=== PATIENT | female | born 1965 | race Caucasian/White ===

== ENCOUNTER 2017-04-14 21:04 | Emergency (ER) | payer SELFPAY ==
[~2017-04-14] VITALS: Ht 162.6 cm; Wt 61.2 kg
[2017-04-14] MEDS ORDERED: KETOROLAC TROMETHAMINE INJ 30 MG/ML VIAL ONE (22:26)
[2017-04-14] MEDS ORDERED: ONDANSETRON HCL/PF 4 MG/2 ML VIAL ONE (22:26)
[2017-04-14] MEDS ORDERED: IV NS 0.9% 1,000 ML BAG IV ONE (22:30)
[2017-04-14] MEDS ORDERED: KETOROLAC TROMETHAMINE INJ 30 MG/ML VIAL IV ONE (22:30)
[2017-04-14] MEDS ORDERED: ONDANSETRON HCL/PF 4 MG/2 ML VIAL IVP ONE (22:30)
--- NOTE | 2017-04-14 22:35 | NUR ---
IV ACCESS STARTED, BLOOD DRAWN FOR LABS. PT MEDICATED ORDERED.
[2017-04-14 22:37] LABS: BASOPHILS # (AUTO) 0.1 /CMM (0.0-0.2); BASOPHILS % (AUTO) 0.7 % (0.0-2.0); EOSINOPHILS # (AUTO) 0.2 /CMM (0.0-0.7); EOSINOPHILS % (AUTO) 2.2 % (0.0-6.0); HEMATOCRIT 42 % (33-45); HEMOGLOBIN 13.8 g/dL (11.5-14.8); LYMPHOCYTES # (AUTO) 2.6 /CMM (0.8-4.8); LYMPHOCYTES % (AUTO) 33.9 % (20.0-44.0); MEAN CORPUSCULAR HEMOGLOBIN 30 PG (26.0-33.0); MEAN CORPUSCULAR HGB CONC 33 g/dl (31.0-36.0); MEAN CORPUSCULAR VOLUME 89 fL (82-100); MONOCYTES # (AUTO) 0.5 /CMM (0.1-1.30); MONOCYTES % (AUTO) 5.8 % (2.0-12.0); NEUTROPHILS # (AUTO) 4.5 /CMM (1.8-8.9); NEUTROPHILS % (AUTO) 57.4 % (43.0-81.0); PLATELET COUNT (AUTO) 225 /CMM (150-450); RED BLOOD CELL COUNT(AUTO) 4.69 MIL/uL (4.0-5.2); WHITE BLOOD COUNT (AUTO) 7.8 K/uL (4.3-11.0)
--- NOTE | 2017-04-14 22:45 | NUR ---
PT UNABLE TO PROVIDE A URINE SAMPLE AT THIS TIME.
[2017-04-14 22:48] LABS: CALCIUM, SERUM 8.4 mg/dL (8.5-10.1); CREATININE 0.8 mg/dL (0.6-1.3); POTASSIUM 4.4 mmol/L (3.5-5.1)
[2017-04-14 22:54] LABS: ALBUMIN 3.5 g/dL (3.4-5.0); BILIRUBIN,TOTAL 0.2 mg/dL (0.2-1.0); TOTAL PROTEIN, SERUM 7.2 g/dL (6.4-8.2)
--- NOTE | 2017-04-14 23:35 | NUR ---
IV removed. Catheter intact and site benign. Pressure and 4x4 applied to site. No bleeding noted.
--- NOTE | 2017-04-14 23:45 | NUR ---
Patient discharged to home in stable condition. Written and verbal after care instructions given. Patient verbalizes understanding of instruction.
[2017-04-14 23:50] VITALS: BP 131/88
== END 2017-04-14 23:51 | disposition home or self-care (01) ==
LOC: ER 21:04
DX: K29.00 Acute gastritis without bleeding (principal); I10 Essential (primary) hypertension; Z87.19 Personal history of other diseases of the digestive system; Z88.2 Allergy status to sulfonamides; Z88.6 Allergy status to analgesic agent; Z88.8 Allergy status to other drugs, medicaments and biological substances
CPT/HCPCS: 36415; 80048-TC; 80076-TC; 83690-TC; 85025-TC; A4606; J1885; J2405; J7030; Z7610

== ENCOUNTER 2017-05-29 01:24 | Emergency (ER) | payer SELFPAY ==
[~2017-05-29] VITALS: Ht 160 cm; Wt 61.2 kg
[2017-05-29 01:59] VITALS: BP 149/91
--- NOTE | 2017-05-29 02:07 | NUR ---
Dr Maldonado at bedside to eval.
== END 2017-05-29 02:44 | disposition home or self-care (01) ==
LOC: ER 01:29
DX: A49.02 Methicillin resistant Staphylococcus aureus infection, unspecified site (principal); I10 Essential (primary) hypertension; Z90.49 Acquired absence of other specified parts of digestive tract; Z88.2 Allergy status to sulfonamides; Z88.1 Allergy status to other antibiotic agents
CPT/HCPCS: 99283; A4606; Z7610

== ENCOUNTER 2017-06-29 19:16 | Inpatient (IN) | payer SELFPAY ==
[~2017-06-29] VITALS: Ht 162.6 cm; Wt 57.2 kg
--- NOTE | 2017-06-29 19:18 | NUR ---
PT TO ER BED 14. PRESENTS W/ SCALP IRRITATION, SWELLING W/ NOTED PUS FOR MONTHS NOW. STATES HURTING REALLY BAD. TOOK AND FINISHED ANTIBIOTICS BUT STATES NOT HELPING. STABLE VITALS. AWAITING MD NATARAJAN.
--- NOTE | 2017-06-29 19:57 | NUR ---
SINDHU ANGULO AT BEDSIDE FOR EVAL.
--- NOTE | 2017-06-29 20:15 | NUR ---
IV LINE STARTED BLOOD DRAWN AND SENT TO LAB.
[2017-06-29 20:22] LABS: BASOPHILS # (AUTO) 0.2 /CMM (0.0-0.2); BASOPHILS % (AUTO) 1.8 % (0.0-2.0); EOSINOPHILS # (AUTO) 0.1 /CMM (0.0-0.7); HEMATOCRIT 46 % (33-45); HEMOGLOBIN 15.1 g/dL (11.5-14.8); LYMPHOCYTES # (AUTO) 1.7 /CMM (0.8-4.8); MEAN CORPUSCULAR HEMOGLOBIN 29 PG (26.0-33.0); MEAN CORPUSCULAR HGB CONC 33 g/dl (31.0-36.0); MEAN CORPUSCULAR VOLUME 88 fL (82-100); MONOCYTES # (AUTO) 0.7 /CMM (0.1-1.30); MONOCYTES % (AUTO) 7.1 % (2.0-12.0); NEUTROPHILS # (AUTO) 6.8 /CMM (1.8-8.9); NEUTROPHILS % (AUTO) 72.1 % (43.0-81.0); PLATELET COUNT (AUTO) 235 /CMM (150-450); RDW COEFFICIENT OF VARIATION 12.4 (11.5-15.0); RED BLOOD CELL COUNT(AUTO) 5.22 MIL/uL (4.0-5.2); WHITE BLOOD COUNT (AUTO) 9.5 K/uL (4.3-11.0)
[2017-06-29] MEDS ORDERED: PIPERACILLIN /TAZOBACTAM 3.375 G in IV D5W 50 ML IV ONE (20:30)
[2017-06-29] MEDS ORDERED: FENTANYL PF 100MCG/2ML AMPUL IV ONE (20:30)
[2017-06-29] MEDS ORDERED: VANCOMYCIN 1 GM in IV D5W 250 ML IV ONE (20:30)
[2017-06-29] MEDS ORDERED: ONDANSETRON HCL/PF 4 MG/2 ML VIAL IVP ONE (20:30)
[2017-06-29] MEDS ORDERED: IV NS 0.9% 1,000 ML BAG IV ONE (20:30)
[2017-06-29 20:38] LABS: ALBUMIN 3.6 g/dL (3.4-5.0); BILIRUBIN,DIRECT 0.1 mg/dL (0.0-0.2); BILIRUBIN,TOTAL 0.5 mg/dL (0.2-1.0); CALCIUM, SERUM 8.9 mg/dL (8.5-10.1); CREATININE 0.7 mg/dL (0.6-1.3); POTASSIUM 3.4 mmol/L (3.5-5.1); TOTAL PROTEIN, SERUM 7.7 g/dL (6.4-8.2)
[2017-06-29] MEDS ORDERED: FENTANYL PF 100MCG/2ML AMPUL ONE (20:47)
[2017-06-29] MEDS ORDERED: PIPERACILLIN /TAZOBACTAM 3.375 G VIAL IV ONE (20:51)
[2017-06-29] MEDS ORDERED: VANCOMYCIN 1 GM VIAL ONE (20:51)
[2017-06-29] MEDS ORDERED: ONDANSETRON HCL/PF 4 MG/2 ML VIAL ONE (20:51)
[2017-06-29] MEDS ORDERED: POTASSIUM CHLORIDE 20 MEQ TAB.PRT.SR PO ONE ×2 (21:00→21:26)
--- NOTE | 2017-06-29 21:54 | NUR ---
LAMISIL UNAVAILABLE IN OMNICEL. NURSE SUPP CALLED STATES THERE IS NONE IN NIGHT LOCKER. SINDHU ANGULO AWARE.
[2017-06-29] MEDS ORDERED: FLUCONAZOLE IN NS,PREMIX 100 MG in PREMIX 1 EA IV SCH ×2 (22:00)
[2017-06-29] MEDS ORDERED: FLUCONAZOLE IN NS 100 ML IV ONE (22:19)
[2017-06-29] MEDS ORDERED: IV 1/2NS 1000 ML 1,000 ML IV PRN (22:23)
[2017-06-29] MEDS ORDERED: Z GUARD REMEDY 2 OZ OINT TP PRN (22:30)
[2017-06-29] MEDS ORDERED: ZOLPIDEM TARTRATE 5 MG TABLET PO PRN (22:30)
[2017-06-29] MEDS ORDERED: ACETAMINOPHEN 325 MG TABLET PO PRN (22:30)
[2017-06-29] MEDS ORDERED: HYDROMORPHONE 1 MG/1 ML DISP.SYRIN IV PRN (22:30)
[2017-06-29] MEDS ORDERED: MAG HYDROX/AL HYDROX/SIMETH 30 ML UDC PO PRN (22:30)
[2017-06-29] MEDS ORDERED: MAGNESIUM HYDROXIDE 30 ML UDC PO PRN (22:30)
[2017-06-29] MEDS ORDERED: ONDANSETRON HCL/PF 4 MG/2 ML VIAL IVP PRN (22:30)
[2017-06-29] MEDS: FENTANYL PF 100MCG/2ML AMPUL IV PRN (22:32)
[2017-06-29 22:44] LABS: INR 0.94 (0.87-1.13); PROTHROMBIN TIME 9.8 SECS (9.5-12.7)
[2017-06-29] MEDS ORDERED: IOHEXOL-300 100 ML VIAL IV ONE (22:49)
[2017-06-29] MEDS ORDERED: IV NS 0.9% 250 ML IV ONE (22:49)
--- NOTE | 2017-06-29 22:52 | NUR ---
REPORT GIVEN TO SURESH. PT AWAITING TRANSFER TO FLOOR.
--- NOTE | 2017-06-29 22:54 | NUR ---
PT TO RADIOLOGY FOR HEAD CT SCAN VIA [facility].
[2017-06-29 23:20] VITALS: BP 122/58
--- NOTE | 2017-06-29 23:20 | NUR ---
RN NOTES RECEIVED PATIENT FROM ER FOR DX SCALP CELLULITIS WITH POSSIBLE ABSCESS. AO X 3, ABLE TO MAKE NEEDS KNOW. NO ACUTE DISTRESS NOTED. PER PATIENT 10/10 HEAD AND SCALP PAIN. SKIN ASSESSMENT DONE. IV SITE PATENT, INTACT; FLUSHED. ON LOW BED WITH BILATERAL UPPER SIDE RAILS UP. CALL LIGHT WITHIN EASY REACH. WILL CONTINUE TO MONITOR.
[2017-06-29 23:38] VITALS: BP 122/58
[2017-06-29] MEDS ORDERED: HYDROCODONE/APAP 5/325MG 1 EACH TABLET ONE (23:57)
[2017-06-29] MEDS: HYDROCODONE/APAP 5/325MG 1 EACH TABLET PO PRN (23:58)
[2017-06-30] MEDS ORDERED: PIPERACILLIN /TAZOBACTAM 2.25 G VIAL IV ONE (04:46)
[2017-06-30] MEDS ORDERED: PIPERACILLIN /TAZOBACTAM 4.5 G in IV D5W 50 ML IV SCH (05:00)
[2017-06-30] MEDS ORDERED: HYDROCODONE/APAP 5/325MG 1 EACH TABLET ONE (05:03)
[2017-06-30] MEDS: HYDROCODONE/APAP 5/325MG 1 EACH TABLET PO PRN ×5 (05:04→22:23)
--- NOTE | 2017-06-30 06:33 | NUR ---
RN NOTES PATIENT ASLEEP, EASILY AROUSABLE. RESPIRATIONS EVEN. NO SIGNS OF PAIN NOTED. DUE MEDS GIVEN WITH NO ASE NOTED. NEEDS ATTENDED. KEPT CLEAN AND DRY. SAFETY PRECAUTIONS AND COMFORT MEASURES IN PLACE WILL GIVE REPORT TO DAY SHIFT FOR CONTINUITY FOR CARE.
--- NOTE | 2017-06-30 07:30 | NUR ---
MS/RN Patient received Patient received from night club manager, sleeping. Appears in no distress, bed in low setting, brakes locked, call light within reach. Will continue to monitor and ensure safety.
[2017-06-30 07:31] LABS: BASOPHILS % (AUTO) 0.4 % (0.0-2.0); EOSINOPHILS # (AUTO) 0.1 /CMM (0.0-0.7); EOSINOPHILS % (AUTO) 1.2 % (0.0-6.0); HEMATOCRIT 40 % (33-45); HEMOGLOBIN 13.3 g/dL (11.5-14.8); LYMPHOCYTES % (AUTO) 12.8 % (20.0-44.0); MEAN CORPUSCULAR HEMOGLOBIN 30 PG (26.0-33.0); MEAN CORPUSCULAR HGB CONC 33 g/dl (31.0-36.0); MEAN CORPUSCULAR VOLUME 89 fL (82-100); MONOCYTES # (AUTO) 0.6 /CMM (0.1-1.30); NEUTROPHILS # (AUTO) 6.2 /CMM (1.8-8.9); NEUTROPHILS % (AUTO) 78.6 % (43.0-81.0); PLATELET COUNT (AUTO) 204 /CMM (150-450); RDW COEFFICIENT OF VARIATION 13.2 (11.5-15.0); RED BLOOD CELL COUNT(AUTO) 4.44 MIL/uL (4.0-5.2); WHITE BLOOD COUNT (AUTO) 7.9 K/uL (4.3-11.0)
[2017-06-30 07:49] LABS: ALBUMIN 2.9 g/dL (3.4-5.0); BILIRUBIN,TOTAL 0.9 mg/dL (0.2-1.0); CALCIUM, SERUM 8.3 mg/dL (8.5-10.1); CREATININE 0.7 mg/dL (0.6-1.3); MAGNESIUM 1.7 mg/dL (1.8-2.4); PHOSPHORUS 4.4 mg/dL (2.5-4.9); TOTAL PROTEIN, SERUM 6.3 g/dL (6.4-8.2)
[2017-06-30 08:00] VITALS: BP_SYST 103; BP_SYST 115; BP_DIAS 55; BP_DIAS 62
[2017-06-30] MEDS ORDERED: FEE PK DOSING 1 MIN EA MC ONE (08:07)
[2017-06-30] MEDS ORDERED: TERBINAFINE HCL 250 MG TABLET PO SCH (09:00)
[2017-06-30] MEDS: VANCOMYCIN 0.75 GM in IV D5W 250 ML IV SCH ×2 (09:29→16:07)
--- NOTE | 2017-06-30 09:30 | NUR ---
MS/RN Medications Jamul one tablet administered for scalp pain. Will monitor effectiveness.
--- NOTE | 2017-06-30 09:40 | NUR ---
MS/RN Vanco Vancomycin infusing at this time, no signs of infiltration.
--- NOTE | 2017-06-30 10:30 | NUR ---
MS/RN Labs reviewed Morning labs reviewed: -WBC 7.9 -Mag 1.7
[2017-06-30] MEDS: PIPERACILLIN /TAZOBACTAM 3.375 G in IV D5W 50 ML IV SCH ×2 (11:12→17:29)
[2017-06-30] MEDS: Magnesium 1GM/D5W 100ML PREMIX 100 ML IV SCH ×2 (11:45→12:42)
--- NOTE | 2017-06-30 12:27 | NUR ---
MS/RN S/B Dr Virk Seen by Dr Virk - continue with current plan of care and awaiting further recommendations from Dr Collins. No increase in pain medications.
--- NOTE | 2017-06-30 13:30 | NUR ---
MS/RN Pacolet One norco tablet administered as ordered for scalp pain. Will monitor effectiveness.
[2017-06-30 16:00] VITALS: BP_SYST 124; BP_DIAS 80; BP_DIAS 90
[2017-06-30] MEDS: FENTANYL PF 100MCG/2ML AMPUL IV PRN (16:07)
--- NOTE | 2017-06-30 16:51 | NUR ---
MS/RN Pain Patient continues to complain of head pain 04/06. Fentanyl 50mcg administered IV as ordered. Will monitor effectiveness.
--- NOTE | 2017-06-30 18:43 | NUR ---
MS/RN End note Patient continues to complain of pain despite receiving norco and fentanyl. Dr Virk aware and does not want to increase medications. All other needs attended, will endorse to carrier associate.
--- NOTE | 2017-06-30 19:35 | NUR ---
rn note; RECEIVED THE PT DOZING INTERMITTENTLY IN BED. BREATHING EVENLY. NO SOB. NAD. OCCASIONALLY SCREAMING FOR PIAN MEDICATION HOWEVER FALLS SLEEP SHORTLY AFTER. SCALP W/ REDNESS. NEEDS ATTENDED. ASSISTED W/ ADLS. CALL LIGHT WITHIN REACH. WILL CONT TO MONITOR.
[2017-06-30 20:00] VITALS: BP 125/68
--- NOTE | 2017-06-30 22:25 | NUR ---
NORCO 5-325 GIVEN ORDERED FOR C/O HEADACHE. ALSO AMBIEN GIVEN PER PT'S REQUEST FOR C/O INSOMNIA. RISK VS. BENEFITS OF TAKING THOSE TWO MEDS WERE EXPLAINED TO THE PT. PT STATED NORCO WILL NOT MADE HER DROWSY AND STILL WILLING TO THE AMBIEN ALONG W/ THE NORCO. WILL CONT TO MONITOR ,
[2017-07-01] MEDS: VANCOMYCIN 0.75 GM in IV D5W 250 ML IV SCH ×2 (00:41→09:11)
[2017-07-01] MEDS: PIPERACILLIN /TAZOBACTAM 3.375 G in IV D5W 50 ML IV SCH ×2 (02:39→10:00)
[2017-07-01] MEDS: FENTANYL PF 100MCG/2ML AMPUL IV PRN ×3 (03:23→10:09)
--- NOTE | 2017-07-01 03:23 | NUR ---
FENTANYL IV WAS GIVEN FOR C/O SEVERE HEADACHE. WILL CONT TO MONITOR,
[2017-07-01] MEDS: HYDROCODONE/APAP 5/325MG 1 EACH TABLET PO PRN ×2 (05:52→09:11)
--- NOTE | 2017-07-01 05:54 | NUR ---
NORCO 5-325 GIVEN ORDERED FOR C/O HEADACHE. will cont to monitor,
--- NOTE | 2017-07-01 06:44 | NUR ---
PT IN BED AWAKE . ANXIOUS AND AGITATED. CONSTANTLY REQUESTING PAIN MEDICATION. SPOKE TO THE PT AND ATTEMPTED TO CALM HER DOWN. MAALOX GIVEN ORDERED PER PT'S C/O STOMACHACHE. NEEDS ATTENDED. CALL LIGHT WITHIN REACH. WILL CONT TO MONITOR AND WILL ENDORSE TO AM SHIFT FOR JOEY.
--- NOTE | 2017-07-01 07:48 | NUR ---
RN MS NOTES PATIENT IN BED, SCREAMING AND AGITATED, PATIENT COMPLAINING OF SHARP ABDOMINAL PAIN 03/06, NORCO WAS JUST GIVEN AT 0552, OFFERED FENTANYL, PATIENT ACCEPTED EVEN THOUGH SHE SAYS FENTANYL WAS INEFFECTIVE, WILL INFORM MD LATER RE: EFFECTIVENESS OF FENTANYL. INSTRUCTED PATIENT TO USE CALL LIGHT FOR HELP INSTEAD OF SCREAMING BECAUSE SHE COULD BE DISTURBING OTHER PATIENTS. PATIENT STARTED TO CALM DOWN. PLAN OF CARE DISCUSSED. NEEDS ATTENDED AND MET, CALL LIGHT WITHIN REACH, WILL CONTINUE TO MONITOR.
[2017-07-01 08:00] VITALS: BP 143/80
[2017-07-01 08:44] LABS: CALCIUM, SERUM 9.1 mg/dL (8.5-10.1); CREATININE 0.7 mg/dL (0.6-1.3); MAGNESIUM 1.9 mg/dL (1.8-2.4); POTASSIUM 3.7 mmol/L (3.5-5.1)
--- NOTE | 2017-07-01 09:06 | NUR ---
RN MS NOTES INFORMED DR. PIMENTEL PATIENT IS SCREAMING NON STOP, COMPLAINING OF ABDOMINAL PAIN, GIVEN NORCO AT 0552 AND FENTANYL AT 0741. PER MD GIVE ANOTHER DOSE OF NORCO NOW, BUT NO CHANGES TO PAIN MEDICATIONS.
--- NOTE | 2017-07-01 10:58 | NUR ---
PHP PROGRAMMER PATIENT SEEN BY DR. LOREN STRONG, RECEIVED NEW ORDER FOR DISCHARGE, ORDER NOTED AND CARRIED OUT. PATIENT AWARE AND VERBALIZED UNDERSTANDING. OFFERED TO TAKE PHOTOS FOR SKIN ASSESSMENT, PATIENT REFUSED. EXPLAINED RISKS AND BENEFITS X3 STILL REFUSED. PATIENT DOES NOT WANT TO BE TOUCHED, DUE TO PAIN.
--- NOTE | 2017-07-01 11:41 | NUR ---
MEDICAL RESEARCHER PATIENT RECEIVED DISCHARGE INSTRUCTIONS AND VERBALIZED UNDERSTANDING, PATIENT IS ALLERGIC TO BACTRIM, DR. PIMENTEL CHANGE PRESCRIPTION TO CLINDAMYCIN 300MG TID X 10 DAYS. PATIENT IS IN NO DISTRESS. REFUSED SKIN ASSESSMENT AND PHOTOS. PIV REMOVED AND COVERED WITH GAUZE AND TAPE. DISCHARGE PAPERWORKS SIGNED BELONGINGS, PATIENT IS WAITING FOR TRANSPORTATION.
[2017-07-01] MEDS ORDERED: CLIN300C97 PO (12:40)
--- NOTE | 2017-07-01 13:45 | NUR ---
DOWNSTAIRS MAID PATIENT LEFT THE FACILITY IN NO DISTRESS, VIA PRIVATE CAR. PER PATIENT, SHE WILL BE PICKED UP BY A FRIEND.
[2017-07-03 18:08] LABS: *HIV-1 RNA BY PCR <20 copies/mL (.)
== END 2017-07-01 13:45 | disposition home or self-care (01) | DRG 603 ==
LOC: ER 19:19 → MEDSG2 21:47
PROVIDERS: ADMIT Internal Medicine; ATTEND Internal Medicine
DX: L03.811 Cellulitis of head [any part, except face] (principal); E44.0 Moderate protein-calorie malnutrition; I10 Essential (primary) hypertension; E87.6 Hypokalemia; Z86.14 Personal history of Methicillin resistant Staphylococcus aureus infection; Z88.2 Allergy status to sulfonamides; Z87.11 Personal history of peptic ulcer disease; E88.09 Other disorders of plasma-protein metabolism, not elsewhere classified; F19.11 Other psychoactive substance abuse, in remission; R21 Rash and other nonspecific skin eruption; Z68.21 Body mass index [BMI] 21.0-21.9, adult; L02.811 Cutaneous abscess of head [any part, except face]
CPT/HCPCS: 36415; 70460-TC; 80048-TC; 80053-TC; 80061-TC; 80076-TC; 80202-TC; 83605-TC; 83735-TC; 84100-TC; 85025-TC; 85652-TC; 85730-TC; 86705; 87040-TC; 87081-TC; 87340; 87536; A4216; A4606; J1450; J2405; J2543; J3010; J3370; J3475; J7030; J7050; J7060; Q9967; Z7610

== ENCOUNTER 2017-07-29 18:59 | Emergency (ER) | payer MEDICAID ==
[~2017-07-29] VITALS: Ht 160 cm; Wt 58.1 kg
[~2017-07-29 18:59] MED LIST: CLIN300C11 PO
[2017-07-29 19:16] VITALS: BP 140/88
--- NOTE | 2017-07-29 20:50 | NUR ---
PT ELOPED FROM FACILITY PRIOR TO RECEIVING DISCHARGE INSTRUCTIONS OR PRESCRIPTIONS. PT NOT IN ASSIGNED CHAIR, WAITING ROOM, OR RESTROOM.
== END 2017-07-29 20:52 | disposition left against medical advice (07) ==
LOC: ER 19:02
DX: L08.89 Other specified local infections of the skin and subcutaneous tissue (principal); B96.89 Other specified bacterial agents as the cause of diseases classified elsewhere; I10 Essential (primary) hypertension; Z87.442 Personal history of urinary calculi; Z88.2 Allergy status to sulfonamides; Z88.8 Allergy status to other drugs, medicaments and biological substances
CPT/HCPCS: 99283; A4606; Z7610

== ENCOUNTER 2018-03-29 22:41 | Emergency (ER) | payer OTHER ==
[~2018-03-29] VITALS: Ht 160 cm; Wt 56.7 kg
--- NOTE | 2018-03-29 22:47 | NUR ---
BIB RA AND IN CUSTODY COMPLAINING OF HEAD PAIN, NAUSEA, AND ABDOMINAL PAIN. "MY GALLSTONES HURT." NO S/S SOB. PT AA/OX4, ANXIOUS SITTING UPRIGHT ON GLUE REEL OPERATOR GURNEY AND YELLING. "I NEED TO SPEAK TO THE DOCTOR AND NURSE." SKIN PINK, WARM, DRY. STABLE CONDITION. NO TRAUMA. VSS. NAD. WILL CONTINUE TO MONITOR.
[2018-03-29] MEDS ORDERED: MORPHINE SULFATE INJ 4 MG/ML DISP.SYRIN ONE (22:55)
[2018-03-29] MEDS ORDERED: ONDANSETRON HCL/PF 4 MG/2 ML VIAL ONE (22:55)
--- NOTE | 2018-03-29 22:55 | NUR ---
PER RADIOLOGY PAGED US TEACH
[2018-03-29] MEDS ORDERED: IV NS 0.9% 500 ML BAG IV ONE (23:00)
[2018-03-29] MEDS ORDERED: MORPHINE SULFATE INJ 2 MG/ML DISP.SYRIN IV ONE (23:00)
[2018-03-29] MEDS ORDERED: ONDANSETRON HCL/PF 4 MG/2 ML VIAL IVP ONE (23:00)
[2018-03-29 23:12] LABS: BASOPHILS # (AUTO) 0.1 /CMM (0.0-0.2); BASOPHILS % (AUTO) 0.9 % (0.0-2.0); EOSINOPHILS % (AUTO) 0.8 % (0.0-6.0); HEMATOCRIT 47 % (33-45); LYMPHOCYTES # (AUTO) 1.4 /CMM (0.8-4.8); MEAN CORPUSCULAR HEMOGLOBIN 29 PG (26.0-33.0); MEAN CORPUSCULAR HGB CONC 32 g/dl (31.0-36.0); MEAN CORPUSCULAR VOLUME 91 fL (82-100); MONOCYTES # (AUTO) 0.3 /CMM (0.1-1.30); NEUTROPHILS # (AUTO) 5.9 /CMM (1.8-8.9); NEUTROPHILS % (AUTO) 76.3 % (43.0-81.0); PLATELET COUNT (AUTO) 226 /CMM (150-450); RED BLOOD CELL COUNT(AUTO) 5.15 MIL/uL (4.0-5.2); WHITE BLOOD COUNT (AUTO) 7.8 K/uL (4.3-11.0)
[2018-03-29 23:16] LABS: CALCIUM, SERUM 9.2 mg/dL (8.5-10.1); CREATININE 0.7 mg/dL (0.6-1.3); POTASSIUM 3.6 mmol/L (3.5-5.1)
[2018-03-29 23:22] LABS: BILIRUBIN,DIRECT 0.1 mg/dL (0.0-0.2); BILIRUBIN,TOTAL 0.5 mg/dL (0.2-1.0); TOTAL PROTEIN, SERUM 7.9 g/dL (6.4-8.2)
--- NOTE | 2018-03-29 23:39 | NUR ---
Patient is resting comfortably in bed. VSS. NAD. STABLE CONDITION. WILL CONTINUE TO MONITOR.
--- NOTE | 2018-03-29 23:50 | NUR ---
US AT BEDSIDE
[2018-03-30] MEDS ORDERED: ONDANSETRON HCL/PF 4 MG/2 ML VIAL ONE (00:14)
--- NOTE | 2018-03-30 00:18 | NUR ---
ZOFRAN 4 ADMINISTERED PER ORDERED BY
[2018-03-30] MEDS ORDERED: ONDANSETRON HCL/PF 4 MG/2 ML VIAL IV ONE (00:30)
--- NOTE | 2018-03-30 01:55 | NUR ---
Patient discharged to home in stable condition. Written and verbal after care instructions given. Patient verbalizes understanding of instruction. IV removed. Catheter intact and site benign. Pressure and 4x4 applied to site. No bleeding noted. AMBULATED WITH STEADY GAIT. INSTRUCTED NOT TO OPERATE OR DRIVE HEAVY MACHINERY. PT IN CUSTODY WITH [employer].
[2018-03-30 01:58] VITALS: BP 158/88
== END 2018-03-30 01:58 ==
LOC: ER 22:42
DX: R10.11 Right upper quadrant pain (principal); I10 Essential (primary) hypertension; Z87.11 Personal history of peptic ulcer disease; Z98.890 Other specified postprocedural states; Z87.19 Personal history of other diseases of the digestive system; Z88.2 Allergy status to sulfonamides; Z88.1 Allergy status to other antibiotic agents
CPT/HCPCS: 36415; 76705; 80048; 80076; 83690; 85025; 96374; 96375; 96376; 99285; A4606; J2270; J2405 ×2; J7040; Z7610; J7030

== ENCOUNTER 2018-12-16 02:55 | Inpatient (IN) ==
[~2018-12-16] VITALS: Ht 160 cm; Wt 55.3 kg
--- NOTE | 2018-12-16 03:20 | NUR ---
PT BIBS. C/O "HAVING FACIAL SWELLING, NECK SWELLING. L FOREARM ABSCESS. R LEG ABSCESS" -SOB AOX.4 AMBULATORY. VSS. KEPT RESTED AND COMFORTABLE, WILL CONTINUE TO MONITOR.
--- NOTE | 2018-12-16 03:24 | NUR ---
SEEN AND EXAMINED BY DR. GERARDO.
[2018-12-16] MEDS ORDERED: VANCOMYCIN 1 GM VIAL ONE (03:31)
--- NOTE | 2018-12-16 03:45 | NUR ---
IV LINE ESTABLISHED ON LEFT HAND G20.
[2018-12-16] MEDS ORDERED: MORPHINE SULFATE INJ 4 MG/ML DISP.SYRIN ONE (03:53)
--- NOTE | 2018-12-16 04:20 | NUR ---
ER PHLEB AT BEDSIDE FOR BLOOD DRAW.
[2018-12-16 04:44] LABS: BASOPHILS % (AUTO) 0.4 % (0.0-2.0); EOSINOPHILS % (AUTO) 1.6 % (0.0-6.0); HEMATOCRIT 43 % (33-45); HEMOGLOBIN 14.8 g/dL (11.5-14.8); LYMPHOCYTES # (AUTO) 1.9 /CMM (0.8-4.8); LYMPHOCYTES % (AUTO) 16.8 % (20.0-44.0); MEAN CORPUSCULAR HGB CONC 34 g/dl (31.0-36.0); MEAN CORPUSCULAR VOLUME 88 fL (82-100); MONOCYTES # (AUTO) 0.8 /CMM (0.1-1.30); MONOCYTES % (AUTO) 7.1 % (2.0-12.0); NEUTROPHILS # (AUTO) 8.3 /CMM (1.8-8.9); NEUTROPHILS % (AUTO) 74.1 % (43.0-81.0); PLATELET COUNT (AUTO) 296 /CMM (150-450); RED BLOOD CELL COUNT(AUTO) 4.94 MIL/uL (4.0-5.2); WHITE BLOOD COUNT (AUTO) 11.2 K/uL (4.3-11.0)
[2018-12-16 04:53] LABS: ALANINE AMINOTRANSFERASE 15 U/L (12-78); ALBUMIN 3.2 g/dL (3.4-5.0); ALKALINE PHOSPHATASE 129 U/L (46-116); AMYLASE 67 U/L (25-115); ASPARTATE AMINOTRANSFERASE 15 U/L (15-37); BILIRUBIN,TOTAL 0.3 mg/dL (0.2-1.0); CALCIUM, SERUM 8.9 mg/dL (8.5-10.1); CARBON DIOXIDE 29 mmol/L (21-32); CHLORIDE 98 mmol/L (98-107); CREATININE 0.7 mg/dL (0.6-1.3); GLUCOSE 86 mg/dL (74-106); LIPASE 135 U/L (73-393); POTASSIUM 3.8 mmol/L (3.5-5.1); SODIUM SERUM 138 mmol/L (136-145); TOTAL PROTEIN, SERUM 8.1 g/dL (6.4-8.2); UREA NITROGEN, BLOOD 14 mg/dL (7-18)
--- NOTE | 2018-12-16 04:55 | NUR ---
CALLED [facility]/DR PIMENTEL RE: ADMISSION
--- NOTE | 2018-12-16 04:55 | NUR ---
CALLED RN SUP FOR MS BED.
[2018-12-16] MEDS ORDERED: MORPHINE SULFATE INJ 10 MG/ML DISP.SYRIN IV ONE (05:00)
[2018-12-16] MEDS ORDERED: VANCOMYCIN 1 GM in IV D5W 250 ML IV ONE (05:00)
[2018-12-16 05:08] LABS: APPEARANCE,URINE Cloudy (CLEAR); BILIRUBIN,URINE Negative (NEGATIVE); BLOOD, URINE Moderate Ery/uL (NEGATIVE); COLOR,URINE Yellow (YELLOW); KETONES,URINE Negative (NEGATIVE); LEUKOCYTE ESTERASE ,URINE Trace (NEGATIVE); NITRITE, URINE Positive (NEGATIVE); PH,URINE 5.5 (5.0-8.0); PROTEIN,URINE 30 mg/dl (NEGATIVE); UGLUCOSE Negative (NEGATIVE); UROBILINOGEN,URINE 0.2 EU/dL (0.2)
--- NOTE | 2018-12-16 05:14 | NUR ---
CALLED [facility] RE: DR PIMENTEL NOT RETURNING THE CALL. DR PIMENTEL RE-PAGED.
--- NOTE | 2018-12-16 05:18 | NUR ---
DR. PIMENTEL SPEAKING TO DR. GERARDO REGARDING PLAN OF CARE/ ADMISSION.
[2018-12-16 05:32] LABS: BACTERIA,URINE Many /HPF (None Seen); SQUAMOUS EPITHELIAL CELL,UR Few /HPF (None Seen); WBC,URINE TOO NUMEROUS TO COUN /HPF (0-3)
--- NOTE | 2018-12-16 05:34 | NUR ---
REPORT GIVEN TO KAN CAT FOR JOEY.
--- NOTE | 2018-12-16 07:08 | NUR ---
CALLED [facility] RE: CT RESULT. [facility] TO FAX CT RESULTS.
--- NOTE | 2018-12-16 07:30 | NUR ---
RECEIVED PATIENT FROM ER. A/OX4, ABLE TO MAKE NEEDS KNOWN. NOT IN ANY FORM OF DISTRESS, NO SOB. IV ACCESS INTACT AND PATENT. ALL BELONGINGS CHECKED, NOTED ON CHECKLIST. SKIN ASSESSMENT DONE, PHOTOS TAKEN. COMPLAINS OF PAIN IN THE LEGS, WILL ADMIN PAIN MEDS ORDERED. PAGE EPIC FOR ADMITTING ORDERS. KEPT PATIENT SAFE AND COMFORTABLE. BED IN LOW/LOCKED POSITION, SIDERAILS UPX2, CALL LIGHT IN REACH. WILL CONTINUE TO MONIOTR ACCORDINGYL.
[2018-12-16 07:38] LABS: BILIRUBIN,DIRECT 0.1 mg/dL (0.0-0.2)
[2018-12-16 08:00] VITALS: BP 108/75
[2018-12-16] MEDS ORDERED: MAG HYDROX/AL HYDROX/SIMETH 30 ML UDC PO PRN (10:00)
[2018-12-16] MEDS ORDERED: ONDANSETRON HCL/PF 4 MG/2 ML VIAL IVP PRN (10:00)
[2018-12-16] MEDS ORDERED: MAGNESIUM HYDROXIDE 30 ML UDC PO PRN (10:00)
[2018-12-16] MEDS ORDERED: ZOLPIDEM TARTRATE 5 MG TABLET PO PRN (10:00)
[2018-12-16] MEDS ORDERED: Z GUARD REMEDY 2 OZ OINT TP PRN (10:00)
[2018-12-16] MEDS: HYDROCODONE/APAP 5/325MG 1 EACH TABLET PO PRN ×3 (10:18→19:40)
--- NOTE | 2018-12-16 10:18 | NUR ---
RN NOTES COMPLAINS OF GENERALIZED PAIN 02/03. NORCO 5 GIVEN ORDERED
[2018-12-16] MEDS: CEFTRIAXONE 1 G in IV D5W 50 ML IV SCH (10:31)
[2018-12-16] MEDS: ACETAMINOPHEN 325 MG TABLET PO PRN ×4 (12:58→23:12)
--- NOTE | 2018-12-16 15:26 | NUR ---
RN NOTES COMPLAINS OF GENERALIZED PAIN 03/06. NORCO 5 GIVEN ORDERED
[2018-12-16 16:00] VITALS: BP 94/59
--- NOTE | 2018-12-16 18:00 | NUR ---
WOUND CULTURE COLLECTED. CALLED LAB FOR CLINICAL DATA ABSTRACTOR.
--- NOTE | 2018-12-16 19:10 | NUR ---
MS RN NOTE RECEIVED PT IN STABLE CONDITION, A&O X4, ABLE TO MAKE NEEDS KNOWN. CURRENTLY IN BED WATCHING TV. NO SIGNS OF SOB OR DISTRESS, PT STATES SHE HAS PAIN. WILL ADMINISTER PAIN MEDICATION ORDERED. IV IN PLACE. ALL CURRENT NEEDS ATTENDED TO. BED LOW, LOCKED, UPPER RAILS UP AND CALL LIGHT WITHIN REACH. WILL CONT. TO MONITOR.
--- NOTE | 2018-12-16 19:25 | NUR ---
RN CLOSING NOTES PATIENT IN STABLE CONDITION. ALL NEEDS ATTENDED AND PROVIDED. ASSISTED PATIENT WITH ADLS. KEPT PATIENT SAFE ADN COMFORTABLE. BED IN LOW/LOCKED POSITION, SIDERAILS UPX2W, CALL LIGHT IN REACH. ENDORSED TO NIGHT RN FOR JOEY.
--- NOTE | 2018-12-16 19:30 | NUR ---
MS RN NOTE PT REFUSED PRN TYLENOL 650 MG. STATING SHE WILL WAIT 10 MIN FOR THE NEXT DOSE TO PRN NORCO.
--- NOTE | 2018-12-16 19:40 | NUR ---
MS RN NOTE PRN NORCO 5-325 MG GIVEN FOR GENERALIZED PAIN 02/03 REQUESTED BY PT. WILL CONT. TO MONITOR.
[2018-12-16 20:00] VITALS: BP 111/68
[2018-12-17] MEDS: HYDROCODONE/APAP 5/325MG 1 EACH TABLET PO PRN ×3 (05:07→20:29)
[2018-12-17 06:30] LABS: BASOPHILS % (AUTO) 0.3 % (0.0-2.0); EOSINOPHILS % (AUTO) 4.2 % (0.0-6.0); HEMATOCRIT 41 % (33-45); HEMOGLOBIN 13.8 g/dL (11.5-14.8); LYMPHOCYTES # (AUTO) 1.3 /CMM (0.8-4.8); LYMPHOCYTES % (AUTO) 19.4 % (20.0-44.0); MEAN CORPUSCULAR HGB CONC 34 g/dl (31.0-36.0); MEAN CORPUSCULAR VOLUME 87 fL (82-100); MONOCYTES # (AUTO) 0.3 /CMM (0.1-1.30); NEUTROPHILS # (AUTO) 4.7 /CMM (1.8-8.9); NEUTROPHILS % (AUTO) 72.1 % (43.0-81.0); PLATELET COUNT (AUTO) 269 /CMM (150-450); WHITE BLOOD COUNT (AUTO) 6.5 K/uL (4.3-11.0)
--- NOTE | 2018-12-17 06:55 | NUR ---
MS RN NOTE CALLED ACCOUNTING RECONCILIATION CLERK MD. PT REQUESTING FOR STRONGER PAIN MEDICATION. STATING THAT NORCO 5-325 MG IS NOT EFFECTIVE. WILL WAIT FOR MD TO RETURN CALL.
[2018-12-17 07:21] LABS: CALCIUM, SERUM 7.8 mg/dL (8.5-10.1); CREATININE 0.6 mg/dL (0.6-1.3); PHOSPHORUS 4.4 mg/dL (2.5-4.9)
--- NOTE | 2018-12-17 07:32 | NUR ---
MS RN NOTE PT IN STABLE CONDITION, A&O X4, ABLE TO MAKE NEEDS KNOWN. CURRENTLY IN BED WATCHING TV. NO SIGNS OF SOB OR DISTRESS, PT STATES SHE HAS PAIN. ADMINISTERED PAIN MEDICATION ORDERED. IV IN PLACE. ALL CURRENT NEEDS ATTENDED TO. BED LOW, LOCKED, UPPER RAILS UP AND CALL LIGHT WITHIN REACH. WILL CONT. TO MONITOR AND ENDORSE TO NEXT SHIFT FOR JOEY.
[2018-12-17 08:00] VITALS: BP 108/79
--- NOTE | 2018-12-17 08:00 | NUR ---
MS RN NOTE PT IN STABLE CONDITION, A&O X4, ABLE TO MAKE NEEDS KNOWN. CURRENTLY IN BED WATCHING TV. NO SIGNS OF SOB OR DISTRESS, PT STATES SHE HAS LEG PAIN. ADMINISTERED PAIN MEDICATION PRN.IV H/L INTACT TO LT HAND.NEEDS ATTENDED TO. BED LOW, LOCKED, UPPER RAILS UP AND CALL LIGHT WITHIN REACH. WILL CONT. TO MONITOR
--- NOTE | 2018-12-17 09:00 | NUR ---
PT KEEPS ASKING FOR STRONGER PAIN MEDS LIKE MORPHINE IV SAYING NORCO DOESN'T WORK FOR HER ABDOMINAL PAIN.PT JUST STAYS IN BED TO SLEEP SINCE LAST NIGHT AND DOESN'T APPEAR IN PAIN.PT JUST WAKES UP FOR PAIN MEDS.PAIN MANAGEMENT TEACHING GIVEN AND ITS SIDE EFFECTS,RISKS AND BENEFITS.INFORMED DR GARCIA WHO'S BEEN REFUSING TO PRESCRIBE STRONG IV PAIN MED SAYING PT DOESN'T NEED IT BECAUSE PT IS SLEEPING IN BED ALL THE TIME.
[2018-12-17] MEDS: CEFTRIAXONE 1 G in IV D5W 50 ML IV SCH (10:24)
[2018-12-17 16:00] VITALS: BP 113/58
[2018-12-17] MEDS: DAKINS QUARTER STRENGTH (0.125%) 480 ML BOTTLE TOP SCH (16:31)
[2018-12-17] MEDS: BACI/NEOM/POLY B OINT PKT 1 UDPKT PACKET TP SCH (16:31)
--- NOTE | 2018-12-17 19:30 | NUR ---
RN NOTES RECEIVED PT AWAKE ON BED, A/OX4, BOYFRIEND AT BEDSIDE, PT. WANTS ME TO CALL THE DOCTOR BECAUSE SHE WANTS HER MEDICATION TO BE CHANGE IN IV , DAYSHIFT NURSE ALREADY TALKED TO DR. GARCIA AND DR GARCIA DID NOT CHANGE IT TO IV... EXPLAINED TO THE PATIENT MAYBE WHY HE DOCTOR DID NOT CHANGE IT TO IV HER PAIN MEDICATION. BUT STILL SHE WANTS ME TO TRY TO TALK TO DOCTOR FAN MAIL EDITOR... CALL LIGHT WITHINR EACH, [id number], CONTINUE TO MONITOR
[2018-12-17 20:00] VITALS: BP 124/77
--- NOTE | 2018-12-17 21:20 | NUR ---
RN NOTES COMPLAINED OF LOWER BACK PAIN- NORCO 5/325 MG PO GIVEN ORDERED, V/S STABLE
--- NOTE | 2018-12-17 22:00 | NUR ---
RN NOTES SPOKE TO LOREN MORENO AND INFORMED HIM THAT PT. IS REQUESTING IF HE CAN CHANGE HER PAIN MEDICATION TO IV, INSTEAD OF PO. MARTIN MORENO DID NOT CHANGE IT TO IV .. TALKED TO THE PT. AND INFORMED HER THAT THE DOCTOR DID NOT CHANGE HER PAIN MEDICATION TO IV
[2018-12-18] MEDS: HYDROCODONE/APAP 5/325MG 1 EACH TABLET PO PRN ×5 (00:10→20:56)
--- NOTE | 2018-12-18 00:20 | NUR ---
RN NOTES PT. COMPLAINED THAT LOWER BACK PAIN- NORCO 5/325 MG PO GIVEN ORDERED, V/S STABLE
--- NOTE | 2018-12-18 05:31 | NUR ---
RN NOTES COMPLAINED OF LOW BACK PAIN- NORCO 5/325MG PO GIVEN ORDERED, V/S STABLE
--- NOTE | 2018-12-18 05:45 | NUR ---
RN NOTES IV LINE ACCIDENTALLY PULLED OUT.. NEW IV LINE INSERTED ON THE RIGHT FOREARM #22
--- NOTE | 2018-12-18 06:39 | NUR ---
RN NOTES AWAKE, DENIES PAIN, NO SOB, MORNING CARE RENDERED, PT. NEEDS ATTENDED
[2018-12-18 06:54] LABS: BASOPHILS % (AUTO) 0.4 % (0.0-2.0); EOSINOPHILS % (AUTO) 5.9 % (0.0-6.0); HEMATOCRIT 40 % (33-45); HEMOGLOBIN 13.4 g/dL (11.5-14.8); LYMPHOCYTES # (AUTO) 1.8 /CMM (0.8-4.8); LYMPHOCYTES % (AUTO) 35.9 % (20.0-44.0); MEAN CORPUSCULAR HGB CONC 34 g/dl (31.0-36.0); MEAN CORPUSCULAR VOLUME 88 fL (82-100); MONOCYTES # (AUTO) 0.3 /CMM (0.1-1.30); MONOCYTES % (AUTO) 7.1 % (2.0-12.0); NEUTROPHILS # (AUTO) 2.5 /CMM (1.8-8.9); NEUTROPHILS % (AUTO) 50.7 % (43.0-81.0); PLATELET COUNT (AUTO) 315 /CMM (150-450); RED BLOOD CELL COUNT(AUTO) 4.56 MIL/uL (4.0-5.2); WHITE BLOOD COUNT (AUTO) 4.9 K/uL (4.3-11.0)
[2018-12-18 06:58] LABS: CALCIUM, SERUM 8.1 mg/dL (8.5-10.1); CREATININE 0.6 mg/dL (0.6-1.3); POTASSIUM 4.1 mmol/L (3.5-5.1)
[2018-12-18 08:00] VITALS: BP 106/51
--- NOTE | 2018-12-18 08:00 | NUR ---
MS RN NOTE PT IN STABLE CONDITION, A&O X4, ABLE TO MAKE NEEDS KNOWN. CURRENTLY IN BED WATCHING TV. NO SIGNS OF SOB OR DISTRESS.IV H/L INTACT TO RT HAND.NEEDS ATTENDED.BED LOW, LOCKED, UPPER RAILS UP AND CALL LIGHT WITHIN REACH. WILL CONT. TO MONITOR
[2018-12-18] MEDS: BACI/NEOM/POLY B OINT PKT 1 UDPKT PACKET TP SCH ×2 (08:20→16:31)
[2018-12-18] MEDS: DAKINS QUARTER STRENGTH (0.125%) 480 ML BOTTLE TOP SCH (08:20)
[2018-12-18] MEDS ORDERED: NEOMY SULF/BACITRAC ZN/POLY 15 GM TUBE TP SCH (09:00)
--- NOTE | 2018-12-18 10:22 | NUR ---
WOUND CARE CONSULT WOUNDCARE RECEIVED CONSULT FOR WOUNDS ON LLE. WOUND CARE WILL DEFER CONSULT AND TREATMENT PLANS TO PLASTIC SURGICAL TEAM INCLUDING DPSal KESSLER WHO ARE CURRENTLY FOLLOWING THIS PATIENT. PATIENT WITH CARISSA AT 21, WILL SEE PRN.
[2018-12-18] MEDS: CEFTRIAXONE 1 G in IV D5W 50 ML IV SCH (11:20)
[2018-12-18] MEDS ORDERED: PHENAZOPYRIDINE HCL 200 MG TABLET PO PRN (12:00)
[2018-12-18 16:00] VITALS: BP 97/53
--- NOTE | 2018-12-18 19:40 | NUR ---
RN INITIAL NOTES: RECEIVED REPORT FROM IVIS OMER, PT IN BED, AWAKE, A/O X4, ON RA RESPIRATION EVEN AND UNLABORED. IV ACCESS PATENT AND FLUSHING WELL, ON HL. PT NOTED TO BE SCRATCHING THE WOUND ON RIGHT LEG. EDUCATE PT FOR IMPORTANCE OF HAND WASHING. DISCUSSED PLAN OF CARE TO PT. SAFETY PRECAUTIONS FOR FALL INITIATED, CALL LIGHT IN REACH, WILL CONTINUE MONITORING PT.
--- NOTE | 2018-12-18 19:52 | NUR ---
wound care: wound care done as ordered by zach pisano wound cleansed with ns pat dry triple atb applied, covered with kerlix, educate pt not to scratch the wound.
[2018-12-18 20:00] VITALS: BP 94/55
[2018-12-18 20:06] VITALS: BP 94/55
--- NOTE | 2018-12-18 20:12 | NUR ---
rn notes: received call from dr vega, informed pt on rocephin 1gm iv q24hr, per md he will not put pt on additional atb, as rocephin is enough at the moment, will wait for final wound cultures. informed rn just did wound care/dressing, informed md how wound looks like and that pt kept scratching the area, per md he will order cream/steroid to apply around wound area.
--- NOTE | 2018-12-18 20:57 | NUR ---
PRN NORCO: PT C/O 02/03 RLE PAIN REQUESTING FOR NORCO, PRN NORCO 5/325 MG TAB PO ADMINISTERED TO THE PT AT THIS TIME. EDUCATE PT REGARDING MEDICATION ACTION AND POTENTIAL SIDE EFFECTS. WILL [id number] TO MONITOR AND REASSESS
[2018-12-18] MEDS ORDERED: CLINDAMYCIN 600 MG in IV NS 0.9% 50 ML IV SCH (21:00)
--- NOTE | 2018-12-18 23:50 | NUR ---
INFORMATION SENT: FACESHEET , ADMIT ORDER , 24 HOURS REPORTS ,ER , CONSULTATIONS , PROGRESS NOTES 12/17-- , UR 12/18 INSURANCE NAME: [facility] FAX NUMBER: [phone] FAX SENT BY DAMIEN MILLARD
--- NOTE | 2018-12-19 00:38 | NUR ---
RN NOTES: PT HAD A VISITOR, CLAIMED I WAS A FRIEND/FIANCE. AND AFTERWARDS MEET APPROACHED THE STATION VOICING THAT PT WOULD LIKE TO LEAVE THE HOSPITAL NOW THERE WILL BE NO ONE TO PICK HER UP IN THE MORNING WHEN PT GOT DISCHARGE. HE ALSO ADDED THAT PT'S PARENTS WENT FOR VACATION/EMERGENCY LEAVE AND PT DOES NOT HAVE KEYS TO ENTER THE HOUSE, SO HE WILL BRING THE PT TO ANOTHER FRIEND NAME SAMMI. RN WENT TO TALKED TO THE PT,EXPLAINED ABOUT LEAVING AGAINST MEDICAL ADVICE, RISK AND BENEFITS, AND THE OPTION TO BE SEEN BY TRANSPORTATION DESIGN ENGINEER TO ARRANGE PLACEMENT AND TRANSPORTATION, PER PATIENT SHE WOULD LIKE TO SPEAK WITH HER FRIEND ONE MORE TIME. HER FRIEND/FIANCE CURRENTLY OFF THE UNIT WENT DOWN TO SMOKE.
--- NOTE | 2018-12-19 00:40 | NUR ---
RN NOTES: REFUSED PICTURE TAKING OF SKIN ISSUES
--- NOTE | 2018-12-19 01:12 | NUR ---
RN NOTES: PT FINALLY DECIDED THAT SHE WILL LEAVE AMA,ONCE AGAIN RISK AND BENEFITS DISCUSSED, PT INSISTED TO GO AMA, PT SIGNED AMA FORM, IV ACCESS REMOVED, ARM BAND REMOVED, ALL BELONGINGS SENT WITH PT, PT'S FRIEND/FIANCEE AT BED SIDE TO CHANGE MANAGEMENT CONSULTANT/ ACCOMPANY PT.
--- NOTE | 2018-12-19 01:19 | NUR ---
AMA NOTES: PT LEFT AMA,PT MADE AWARE OF RISK AND BENEFITS OF STAYING IN THE HOSPITAL, AND LEAVING AMA, BUT PT IS DECIDED TO LEAVE. ALL BELONGINGS SENT HOME WITH PT. PT AWARE THAT SHE WILL NOT HAVE ANY PRESCRIPTION NOR DOCUMENTATION RECORD OF HER STAY ONCE SHE LEAVE AMA. ACCOMPANIED BY LYRIC/FRIEND, PT SIGNED AMA FORM, WAX ROOM SUPERVISOR NOTIFIED STATED "OKAY". PT LEFT THE UNIT, ACCOMPANIED BY LYRIC, LEFT VIA PRIVATE CAR.
--- NOTE | 2018-12-19 01:20 | NUR ---
RN NOTES: RN SUP NOTIFIED OF PT'S LEAVING AMA
[2018-12-19] MEDS ORDERED: CLOTRIMAZOLE/BETAMETASONE DIPROPIONATE 15 GM TUBE TP SCH (09:00)
== END 2018-12-19 01:20 | disposition left against medical advice (07) | DRG 383 ==
LOC: ER 02:55 → MEDSG2 05:31
PROVIDERS: ADMIT Family Medicine; ATTEND Family Medicine
DX: L03.115 Cellulitis of right lower limb (principal); E87.2 Acidosis; I10 Essential (primary) hypertension; D72.829 Elevated white blood cell count, unspecified; S01.00XA Unspecified open wound of scalp, initial encounter; K29.70 Gastritis, unspecified, without bleeding; B95.0 Streptococcus, group A, as the cause of diseases classified elsewhere; S51.802A Unspecified open wound of left forearm, initial encounter; S91.104A Unspecified open wound of right lesser toe(s) without damage to nail, initial encounter; N39.0 Urinary tract infection, site not specified; Z88.2 Allergy status to sulfonamides; B96.20 Unspecified Escherichia coli [E. coli] as the cause of diseases classified elsewhere; X58.XXXA Exposure to other specified factors, initial encounter; Y93.9 Activity, unspecified; M79.661 Pain in right lower leg; L08.9 Local infection of the skin and subcutaneous tissue, unspecified; Y92.009 Unspecified place in unspecified non-institutional (private) residence as the place of occurrence of the external cause
CPT/HCPCS: 36415; 80048-TC; 80053-TC; 80061-TC; 81000-TC; 82150-TC; 82248-TC; 83605-TC; 83690-TC; 83735-TC; 84100-TC; 84484-TC; 85025-TC; 85610-TC; 87040-TC; 87070-TC; 87081-TC; 87086-TC; 87186-TC; A4216; G0378; J0696; J2270; J3370; J3490; J7060